=== PATIENT | female | born 1995 | race Caucasian/White ===

== ENCOUNTER 2017-11-15 23:10 | Emergency (ER) | payer SELFPAY ==
[~2017-11-15] VITALS: Ht 157.5 cm; Wt 48.0 kg
[~2017-11-15 23:10] MED LIST: MACR100C PO; METR-1 PO
[2017-11-15 23:26] VITALS: BP 117/72; PULSE 77; RESP 18; TEMP 98.8; O2SAT 100
--- NOTE | 2017-11-16 00:16 | PD ---
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 Pt said she is now on day 10 of her menstrual period and it normal lasts only 5 or 6 days. Pt also with lower abdominal cramping that feels like her menstrual period and right sided lower back pain that is painful only when you touch it. Pt has not taken anything for pain. +Nonbloody diarrhea. Denies any fever, chest pain, sob, n/v , vaginal discharge, focal weakness or numbness. However, pt admits to sexual intercourse with multiple partners. PFSH Past Medical History Diabetes: No Diminished Hearing: No Immunizations Current: Yes ?: Unknown LMP: 11/15/17 Social History Alcohol Use: Yes (rare) Tobacco Use: Yes (5-6 a day) Substance Use: No Allergies-Medications (Allergen,Severity, Reaction): Coded Allergies: No Known Allergies (Verified Adverse Reaction, Unknown, 11/15/17) Reported Meds & Prescriptions Reported Meds & Active Scripts Active Metronidazole 500 Mg Tab 500 Mg PO BID 7 Days Doxycycline Hyclate 100 Mg Cap 100 Mg PO BID Flagyl (Metronidazole) 500 Mg Tab 500 Mg PO BID 7 Days TAKE UNTIL GONE Macrobid (Nitrofurantoin Macrocrystals) 100 Mg Cap 100 Mg PO BID Review of Systems Except as stated in HPI: all other systems reviewed are Neg Physical Exam Narrative GENERAL: 22yo F not in distress. SKIN: Focused skin assessment warm/dry. HEAD: Atraumatic. Normocephalic. CARDIOVASCULAR: Regular rate and rhythm. No murmur appreciated. RESPIRATORY: No accessory muscle use. Clear to auscultation. Breath sounds equal bilaterally. GASTROINTESTINAL: Abdomen soft, Mild suprapubic tenderness. No RLQ ttp. No rebound tenderness or guarding. PELVIC: Clear discharge. Small amount of bleed. Cervical os closed. +CMT. BACK: No midline thoracic or lumbar ttp. No CVA tenderness bilaterally. +TTP paraspinal L5. MUSCULOSKELETAL: No obvious deformities. No clubbing. No cyanosis. No edema. NEUROLOGICAL: Awake and alert. No obvious cranial nerve deficits. Motor grossly within normal limits in all extremities. Sensation intact. Normal speech. PSYCHIATRIC: Appropriate mood and affect; insight and judgment normal. Data Data Last Documented VS Vital Signs Date Time Temp Pulse Resp B/P (MAP) Pulse Ox O2 Delivery O2 Flow Rate FiO2 11/15/17 23:26 98.8 77 18 117/72 (87) 100 Orders Orders Complete Blood Count With Diff (11/16/17 00:03) Comprehensive Metabolic Panel (11/16/17 00:03) Gc And Chlamydia Pcr (11/16/17 00:03) Wet Prep Profile (11/16/17 00:03) Ua Includes Microscopic (11/16/17 00:03) Ed Urine Pregnancytest Poc (11/16/17 00:04) Doxycycline (Vibratab) (11/16/17 00:45) Ceftriaxone Inj (Rocephin Inj) (11/16/17 00:45) Lidocaine 1% Inj (50 Ml) (Xylocaine 1% I (11/16/17 00:45) Ketorolac Inj (Toradol Inj) (11/16/17 01:00) Metronidazole (Flagyl) (11/16/17 01:00) Ed Discharge Order (11/16/17 02:14) Labs Laboratory Tests Test 11/16/17 00:01 11/16/17 00:18 11/16/17 00:26 Urine Color YELLOW Urine Turbidity HAZY Urine pH 6.5 Urine Specific [place] 1.009 Urine Protein TRACE mg/dL Urine Glucose (UA) NEG mg/dL Urine Ketones NEG mg/dL Urine Occult Blood LARGE Urine Nitrite NEG Urine Bilirubin NEG Urine Urobilinogen LESS THAN 2.0 MG/DL Urine Leukocyte Esterase LARGE Urine RBC 11 /hpf Urine WBC 28 /hpf Urine Squamous Epithelial Cells 13 /hpf Urine Amorphous Sediment OCC Urine Bacteria OCC /hpf Urine Trichomonas FEW White Blood Count 5.1 TH/MM3 Red Blood Count 4.12 MIL/MM3 Hemoglobin 14.2 GM/DL Hematocrit 39.2 % Mean Corpuscular Volume 95.3 FL Mean Corpuscular Hemoglobin 34.5 PG Mean Corpuscular Hemoglobin Concent 36.2 % Red Cell Distribution Width 12.4 % Platelet Count 257 TH/MM3 Mean Platelet Volume 7.7 FL Neutrophils (%) (Auto) 48.8 % Lymphocytes (%) (Auto) 38.4 % Monocytes (%) (Auto) 9.0 % Eosinophils (%) (Auto) 3.5 % Basophils (%) (Auto) 0.3 % Neutrophils # (Auto) 2.5 TH/MM3 Lymphocytes # (Auto) 2.0 TH/MM3 Monocytes # (Auto) 0.5 TH/MM3 Eosinophils # (Auto) 0.2 TH/MM3 Basophils # (Auto) 0.0 TH/MM3 CBC Comment AUTO DIFF Differential Comment AUTO DIFF CONFIRMED Platelet Estimate NORMAL Platelet Morphology Comment NORMAL Red Cell Morphology Comment NORMAL Blood Urea Nitrogen 10 MG/DL Creatinine 0.77 MG/DL Random Glucose 82 MG/DL Total Protein 8.4 GM/DL Albumin 4.2 GM/DL Calcium Level 9.1 MG/DL Alkaline Phosphatase 96 U/L Aspartate Amino Transf (AST/SGOT) 17 U/L Alanine Aminotransferase (ALT/SGPT) 17 U/L Total Bilirubin 0.3 MG/DL Sodium Level 142 MEQ/L Potassium Level 4.2 MEQ/L Chloride Level 102 MEQ/L Carbon Dioxide Level 31.0 MEQ/L Anion Gap 9 MEQ/L Estimat Glomerular Filtration Rate 95 ML/MIN Clue Cells (Wet Prep) PRESENT Vaginal Trichomonas (Wet Prep) PRESENT Vaginal Yeast (Wet Prep) NONE SEEN Chlamydia trachomatis DNA (PCR) NOT DETECTED Neisseria gonorrhoeae DNA (PCR) NOT DETECTED MDM Medical Decision Making Medical Screen Exam Complete: Yes Emergency Medical Condition: Yes Differential Diagnosis PID vs. STI vs. cystitis vs. dehydration Narrative Course 22yo F with complaints of menstrual period that is longer than normal. Pt also has cervical motion tenderness on exam and has multiple sexual partners so will treat for PID. Pt given ceftriaxone 250mg IM with lidocaine and doxycycline. Labs are pending but patient is well appearing so sign out to PA and if labs are reassuring, pt can be discharge with 14 days of doxycycline. UA showed large leukocyte. WBC 28. Doxycycline will cover UTI. Wet prep positive for clue cells and trichomonas, will add metronidazole. Diagnosis Primary Impression: Bacterial vaginitis Additional Impressions: UTI (urinary tract infection) Qualified Codes: N39.0 - Urinary tract infection, site not specified; R31.9 - Hematuria, unspecified PID (acute pelvic inflammatory disease) Med/Other Pt SpecificInfo: Prescription(s) given Scripts Metronidazole (Metronidazole) 500 Mg Tab 500 MG PO BID for Infection for 7 Days, #14 TAB 0 Refills Prov: Carol Street DO 11/16/17 Doxycycline Hyclate (Doxycycline Hyclate) 100 Mg Cap 100 MG PO BID for Infection, #28 CAP 0 Refills Prov: Carol Street DO 11/16/[address] DO November 16, 2017 00:16
[2017-11-16 00:43] LABS: AUTOMATED NEUTROPHIL # 2.5 TH/MM3 (1.8-7.7); BASOPHIL % 0.3 % (0.0-2.0); EOSINOPHIL # 0.2 TH/MM3 (0-0.4); EOSINOPHIL % 3.5 % (0.0-4.0); HEMATOCRIT 39.2 % (35.0-46.0); HEMOGLOBIN 14.2 GM/DL (11.6-15.3); LYMPH % 38.4 % (9.0-44.0); MEAN CELL VOLUME 95.3 FL (80.0-100.0); MEAN CORPUSCULAR HEMOGLOBIN 34.5 PG (27.0-34.0); MEAN PLATELET VOLUME 7.7 FL (7.0-11.0); MONOCYTE # 0.5 TH/MM3 (0-0.9); NEUT % 48.8 % (16.0-70.0); PLATELET COUNT 257 TH/MM3 (150-450); RED BLOOD COUNT 4.12 MIL/MM3 (4.00-5.30); RED CELL DISTRIBUTION WIDTH 12.4 % (11.6-17.2); WHITE BLOOD COUNT 5.1 TH/MM3 (4.0-11.0)
[2017-11-16] MEDS ORDERED: DOXYCYCLINE HYCLATE 100 MG TAB PO ONE (00:45)
[2017-11-16] MEDS ORDERED: cefTRIAXone 250 MG VIAL IM ONE (00:45)
[2017-11-16] MEDS ORDERED: LIDOCAINE HCL 1% 50 ML VIAL IM ONE (00:45)
[2017-11-16 00:46] LABS: AMORPHOUS SEDIMENT, URINE OCC; BACTERIA, URINE OCC /hpf; BILIRUBIN, URINE NEG (NEG); BLOOD, URINE LARGE (NEG); GLUCOSE,URINE NEG (NEG); KETONE, URINE NEG (NEG); NITRITE,URINE NEG (NEG); PH, URINE 6.5 (5.0-8.5); SQUAMOUS EPITHELIAL CELL URINE 13 /hpf (0-5); TRICHOMONAS, URINE FEW; URINE COLOR YELLOW (YELLW/STRAW); URINE LEUKOCYTE ESTERASE LARGE (NEG)
[2017-11-16 00:48] LABS: MEAN CORPUSCULAR HGB CONC 36.2 % (32.0-36.0)
[2017-11-16] MEDS ORDERED: METR1TAB76 PO (00:52)
[2017-11-16] MEDS ORDERED: DOXY100C PO (00:52)
[2017-11-16 00:53] LABS: ALBUMIN 4.2 GM/DL (3.4-5.0); ALKALINE PHOSPHATASE 96 U/L (45-117); ALT (GPT) 17 U/L (10-53); AST (GOT) 17 U/L (15-37); BLOOD UREA NITROGEN 10 MG/DL (7-18); CALCIUM 9.1 MG/DL (8.5-10.1); CHLORIDE 102 MEQ/L (98-107); CREATININE 0.77 MG/DL (0.50-1.00); GLOMERULAR FILTRATION RATE 95 ML/MIN (>89); GLUCOSE,RANDOM 82 MG/DL (74-106); SODIUM (NA) 142 MEQ/L (136-145); TOTAL BILIRUBIN ADULT 0.3 MG/DL (0.2-1.0); TOTAL PROTEIN 8.4 GM/DL (6.4-8.2)
[2017-11-16] MEDS ORDERED: metroNIDAZOLE 500 MG TAB PO ONE (01:00)
[2017-11-16] MEDS ORDERED: KETOROLAC TROMETHAMINE 30 MG/ML (IVP) VIAL IV PUSH ONE (01:00)
--- NOTE | 2017-11-16 02:16 | PD ---
Physical Exam Date Seen by Provider: November 16, 2017 Time Seen by Provider: 02:15 Narrative GENERAL: This is a well-nourished, well-developed patient, in no apparent distress. SKIN: No rashes, ecchymoses or lesions. Warm and dry. HEAD: Atraumatic. Normocephalic. EYES: PERRL, EOMI, no discharge or injection. No scleral icterus. EARS: Clear NOSE: Nasal turbinates appear normal. THROAT: Mucosa pink and moist. Airway patent. NECK: Trachea midline. supple, moves head freely. LUNGS: Clear to auscultation. CV: Regular in rhythm. ABDOMEN: Soft nontender. EXT: No clubbing cyanosis or edema. Data Data Last Documented VS Vital Signs Date Time Temp Pulse Resp B/P (MAP) Pulse Ox O2 Delivery O2 Flow Rate FiO2 11/15/17 23:26 98.8 77 18 117/72 (87) 100 Orders Orders Complete Blood Count With Diff (11/16/17 00:03) Comprehensive Metabolic Panel (11/16/17 00:03) Gc And Chlamydia Pcr (11/16/17 00:03) Wet Prep Profile (11/16/17 00:03) Ua Includes Microscopic (11/16/17 00:03) Ed Urine Pregnancytest Poc (11/16/17 00:04) Doxycycline (Vibratab) (11/16/17 00:45) Ceftriaxone Inj (Rocephin Inj) (11/16/17 00:45) Lidocaine 1% Inj (50 Ml) (Xylocaine 1% I (11/16/17 00:45) Ketorolac Inj (Toradol Inj) (11/16/17 01:00) Metronidazole (Flagyl) (11/16/17 01:00) Ed Discharge Order (11/16/17 02:14) Labs Laboratory Tests Test 11/16/17 00:01 11/16/17 00:18 11/16/17 00:26 Urine Color YELLOW Urine Turbidity HAZY Urine pH 6.5 Urine Specific [place] 1.009 Urine Protein TRACE mg/dL Urine Glucose (UA) NEG mg/dL Urine Ketones NEG mg/dL Urine Occult Blood LARGE Urine Nitrite NEG Urine Bilirubin NEG Urine Urobilinogen LESS THAN 2.0 MG/DL Urine Leukocyte Esterase LARGE Urine RBC 11 /hpf Urine WBC 28 /hpf Urine Squamous Epithelial Cells 13 /hpf Urine Amorphous Sediment OCC Urine Bacteria OCC /hpf Urine Trichomonas FEW White Blood Count 5.1 TH/MM3 Red Blood Count 4.12 MIL/MM3 Hemoglobin 14.2 GM/DL Hematocrit 39.2 % Mean Corpuscular Volume 95.3 FL Mean Corpuscular Hemoglobin 34.5 PG Mean Corpuscular Hemoglobin Concent 36.2 % Red Cell Distribution Width 12.4 % Platelet Count 257 TH/MM3 Mean Platelet Volume 7.7 FL Neutrophils (%) (Auto) 48.8 % Lymphocytes (%) (Auto) 38.4 % Monocytes (%) (Auto) 9.0 % Eosinophils (%) (Auto) 3.5 % Basophils (%) (Auto) 0.3 % Neutrophils # (Auto) 2.5 TH/MM3 Lymphocytes # (Auto) 2.0 TH/MM3 Monocytes # (Auto) 0.5 TH/MM3 Eosinophils # (Auto) 0.2 TH/MM3 Basophils # (Auto) 0.0 TH/MM3 CBC Comment AUTO DIFF Differential Comment AUTO DIFF CONFIRMED Platelet Estimate NORMAL Platelet Morphology Comment NORMAL Red Cell Morphology Comment NORMAL Blood Urea Nitrogen 10 MG/DL Creatinine 0.77 MG/DL Random Glucose 82 MG/DL Total Protein 8.4 GM/DL Albumin 4.2 GM/DL Calcium Level 9.1 MG/DL Alkaline Phosphatase 96 U/L Aspartate Amino Transf (AST/SGOT) 17 U/L Alanine Aminotransferase (ALT/SGPT) 17 U/L Total Bilirubin 0.3 MG/DL Sodium Level 142 MEQ/L Potassium Level 4.2 MEQ/L Chloride Level 102 MEQ/L Carbon Dioxide Level 31.0 MEQ/L Anion Gap 9 MEQ/L Estimat Glomerular Filtration Rate 95 ML/MIN Clue Cells (Wet Prep) PRESENT Vaginal Trichomonas (Wet Prep) PRESENT Vaginal Yeast (Wet Prep) NONE SEEN [facility] Medical Record Reviewed: Yes Supervised Visit with BIENVENIDO: Yes Interpretation(s) Laboratory Tests Test 11/16/17 00:01 11/16/17 00:18 11/16/17 00:26 Urine Color YELLOW Urine Turbidity HAZY Urine pH 6.5 Urine Specific [place] 1.009 Urine Protein TRACE mg/dL Urine Glucose (UA) NEG mg/dL Urine Ketones NEG mg/dL Urine Occult Blood LARGE Urine Nitrite NEG Urine Bilirubin NEG Urine Urobilinogen LESS THAN 2.0 MG/DL Urine Leukocyte Esterase LARGE Urine RBC 11 /hpf Urine WBC 28 /hpf Urine Squamous Epithelial Cells 13 /hpf Urine Amorphous Sediment OCC Urine Bacteria OCC /hpf Urine Trichomonas FEW White Blood Count 5.1 TH/MM3 Red Blood Count 4.12 MIL/MM3 Hemoglobin 14.2 GM/DL Hematocrit 39.2 % Mean Corpuscular Volume 95.3 FL Mean Corpuscular Hemoglobin 34.5 PG Mean Corpuscular Hemoglobin Concent 36.2 % Red Cell Distribution Width 12.4 % Platelet Count 257 TH/MM3 Mean Platelet Volume 7.7 FL Neutrophils (%) (Auto) 48.8 % Lymphocytes (%) (Auto) 38.4 % Monocytes (%) (Auto) 9.0 % Eosinophils (%) (Auto) 3.5 % Basophils (%) (Auto) 0.3 % Neutrophils # (Auto) 2.5 TH/MM3 Lymphocytes # (Auto) 2.0 TH/MM3 Monocytes # (Auto) 0.5 TH/MM3 Eosinophils # (Auto) 0.2 TH/MM3 Basophils # (Auto) 0.0 TH/MM3 CBC Comment AUTO DIFF Differential Comment AUTO DIFF CONFIRMED Platelet Estimate NORMAL Platelet Morphology Comment NORMAL Red Cell Morphology Comment NORMAL Blood Urea Nitrogen 10 MG/DL Creatinine 0.77 MG/DL Random Glucose 82 MG/DL Total Protein 8.4 GM/DL Albumin 4.2 GM/DL Calcium Level 9.1 MG/DL Alkaline Phosphatase 96 U/L Aspartate Amino Transf (AST/SGOT) 17 U/L Alanine Aminotransferase (ALT/SGPT) 17 U/L Total Bilirubin 0.3 MG/DL Sodium Level 142 MEQ/L Potassium Level 4.2 MEQ/L Chloride Level 102 MEQ/L Carbon Dioxide Level 31.0 MEQ/L Anion Gap 9 MEQ/L Estimat Glomerular Filtration Rate 95 ML/MIN Clue Cells (Wet Prep) PRESENT Vaginal Trichomonas (Wet Prep) PRESENT Vaginal Yeast (Wet Prep) NONE SEEN Differential Diagnosis MDM: Moderate Differential diagnoses: Chlamydia, gonorrhea, syphilis, chancroid, hepatitis, HIV, herpes Narrative Course This is PID. Patient given Rocephin and Flagyl. She will be discharged on doxycycline. UTI Diagnosis Primary Impression: Bacterial vaginitis Additional Impressions: PID (acute pelvic inflammatory disease) UTI (urinary tract infection) Qualified Codes: N39.0 - Urinary tract infection, site not specified; R31.9 - Hematuria, unspecified Patient Instructions: General Instructions, Pelvic Inflammatory Disease (ED), Bacterial Vaginosis (ED), Dysuria (ED) Additional Instruction: Rest. Partner notification. Follow-up with the [facility] for further STD testing such as HIV, syphilis and hepatitis. No intercourse until all partners treated. Always use a condom. Medications are complete. Follow-up with a home based assistant in 1 week. Return to the ER if any problems. Med/Other Pt SpecificInfo: Prescription(s) given Scripts Metronidazole (Metronidazole) 500 Mg Tab 500 MG PO BID for Infection for 7 Days, #14 TAB 0 Refills Prov: Carol Street DO 11/16/17 Doxycycline Hyclate (Doxycycline Hyclate) 100 Mg Cap 100 MG PO BID for Infection, #28 CAP 0 Refills Prov: Carol Street DO 11/16/17 Disposition: 01 DISCHARGE HOME Condition: Stable Tolu Mccracken November 16, 2017 02:16
== END 2017-11-16 02:21 | disposition home or self-care (01) ==
LOC: NEPD 23:10
DX: N76.0 Acute vaginitis (principal); B96.89 Other specified bacterial agents as the cause of diseases classified elsewhere; N73.0 Acute parametritis and pelvic cellulitis; N39.0 Urinary tract infection, site not specified
CPT/HCPCS: 80053; 81001; 84703; 85025; 87210; 87491; 87591; 96372; 96374; 99283; J0696; J1885